=== PATIENT | male | born 1995 | race Caucasian/White ===

== ENCOUNTER 2018-10-07 16:24 | Emergency (ER) | payer OTHER ==
[2018-10-07] MEDS ORDERED: Diphtheria,Pertussis(Acell),Tetanus Vaccine 0.5 ML Syringe IM ONE (16:44)
[2018-10-07] MEDS ORDERED: Bacitracin Oint 1 GM U/D Packet TOP ONE (16:44)
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
--- NOTE | 2018-10-07 17:19 | CR ---
Indication: Trauma and pain Technique: Left shoulder 3 views. Comparison: None Findings: Bones: Alignment is normal. No fractures or bone lesions. Joint spaces: Unremarkable. Soft tissues: Unremarkable. Impression: No sign of acute injury. Dictated by Juan Ruth MD @ Oct 07 2018 5:17PM Signed by Dr. Juan Ruth @ Oct 07 2018 5:18PM
--- NOTE | 2018-10-07 17:20 | CR ---
Indication: Injury and pain. Technique: Right knee 3 views Comparison: None Findings: Bones: Alignment is normal. No fractures or bone lesions. Joint spaces: No joint effusion. Joint spaces are well maintained. No degenerative changes. Soft tissues: Unremarkable. Impression: No sign of acute injury. Dictated by Juan Ruth MD @ Oct 07 2018 5:18PM Signed by Dr. Juan Ruth @ Oct 07 2018 5:19PM
== END 2018-10-07 17:45 | disposition home or self-care (01) ==
LOC: MW.ED 16:24
DX: S80.11XA Contusion of right lower leg, initial encounter (principal); S80.212A Abrasion, left knee, initial encounter; S80.211A Abrasion, right knee, initial encounter; S49.92XA Unspecified injury of left shoulder and upper arm, initial encounter; Z23 Encounter for immunization; V86.56XA Driver of dirt bike or motor/cross bike injured in nontraffic accident, initial encounter
CPT/HCPCS: 73030-26-LT; 73030-LT; 73562-26-RT; 73562-RT; 90471; 90715; 99283; 99283-25

== ENCOUNTER 2019-02-08 19:27 | Emergency (ER) | payer OTHER ==
[2019-02-08] MEDS ORDERED: Ketorolac 60 MG/2 ML SDV IM ONE (19:39)
--- NOTE | 2019-02-08 19:43 | EDM.PDOC ---
ED HPI GENERAL MEDICAL PROBLEM - General Chief Complaint: Back Pain or Injury Stated Complaint: BACK PAIN Time Seen by Provider: 02/08/19 19:28 Source of Information: Reports: Patient History Limitations: Reports: No Limitations - History of Present Illness INITIAL COMMENTS - FREE TEXT/NARRATIVE: HISTORY AND PHYSICAL: History of present illness: Patient is a 23-year-old male presents to the ED today with concern of mid back pain 1 week. Patient states she has had issues with mid back pain off and on over the past 3-4 years. Patient states that a few days ago he went to the chiropractor and had relief of symptoms. Patient states he "didn't take it easy "and continued to work hard which really flared up his back pain. Patient denies any trauma or injury to the back. Patient denies any loss or retention of bowel and bladder function or saddle anesthesia. Patient denies any other symptoms or concerns. Patient denies fever, chills, chest pain, shortness of breath, or cough. Denies headache, neck stiff ness, change in vision, syncope, or near syncope. Denies nausea, vomiting, abdominal pain, diarrhea, constipation, or dysuria. Has not noted any blood in urine or stool. Patient has been eating and drinking appropriately. Review of systems: As per history of present illness and below otherwise all systems reviewed and negative. Past medical history: As per history of present illness and as reviewed below otherwise noncontributory. Surgical history: As per history of present illness and as reviewed below otherwise noncontributory. Social history: See social history for further information Family history: As per history of present illness and as reviewed below otherwise noncontributory. Physical exam: General: Patient is alert, oriented, and in no acute distress. Patient sitting comfortably on exam table. HEENT: Atraumatic, normocephalic, pupils equal and reactive bilaterally, negative for conjunctival pallor or scleral icterus, mucous membranes moist, TMs normal bilaterally, throat clear, neck supple, nontender, trachea midline. No drooling or trismus noted. No meningeal signs. No hot potato voice noted. Lungs: Clear to auscultation, breath sounds equal bilaterally, chest nontender. Heart: S1S2, regular rate and rhythm without overt murmur Abdomen: Soft, nondistended, nontender. Negative for masses or hepatosplenomegaly. Negative for costovertebral tenderness. Pelvis: Stable nontender. Genitourinary: Deferred. Rectal: Deferred. Skin: Intact, warm, dry. No lesions or rashes noted. Extremities: Atraumatic, negative for cords or calf pain. Neurovascular unremarkable. No obvious deformity of the complete spine. No step-offs, crepitus , or point tenderness of spinous process of complete spine. Patient does have mild to moderate pain with palpation of the paraspinous muscles of the thoracic spine but does have full range of motion of the complete spine. SLR intact bilaterally. Patellar reflex intact bilaterally. Heel/Tip toe gait intact. Neuro: Awake, alert, oriented. Cranial nerves II through XII unremarkable. Cerebellum unremarkable. Motor and sensory unremarkable throughout. Exam nonfocal. Notes: Discussed the importance for follow-up with a primary care provider. Voices understanding and is agreeable to plan of care. Denies any further questions or concerns at this time. Diagnostics: UA, thoracic x-ray Therapeutics: Toradol, Norflex Prescription: Diclofenac, Flexeril Impression: Mid back pain Plan: 1. Rest, ice/heat elevate the affected extremity. You can apply ice and/or heat 15 minutes on, 15 minutes off. 2. Tylenol as directed for pain management or discomfort. Take medication as prescribed. 3. Follow up with the primary care provider as discussed. Return to the ED as needed and as discussed. Definitive disposition and diagnosis as appropriate pending reevaluation and review of above. low to mid back and neck Pain Score (Numeric/FACES): 7 - Related Data Allergies Allergy/AdvReac Type Severity Reaction Status Date / Time No Known Allergies Allergy Verified 02/08/19 19:36 Home Meds: Home Meds . [No Known Home Meds] 10/07/18 [History] Past Medical History - Past Health History Medical/Surgical History: Denies Medical/Surgical History Other Musculoskeletal History: threw back out at the age of 20 Social & Family History - Tobacco Use Smoking Status *Q: Current Every Day Smoker Years of Tobacco use: 10 Packs/Tins Daily: 0.5 - Recreational Drug Use Recreational Drug Use: No ED ROS GENERAL - Review of Systems Review Of Systems: ROS reveals no pertinent complaints other than HPI. ED EXAM, GENERAL - Physical Exam Exam: See Below (See dictation) Course - Vital Signs Last Recorded V/S: Last Vital Signs Temp 97.8 F 02/08/19 19:33 Pulse 76 02/08/19 19:33 Resp 18 02/08/19 19:33 BP 123/69 02/08/19 19:33 Pulse Ox 99 02/08/19 19:33 - Orders/Labs/Meds Labs: Laboratory Tests 02/08/19 Range/Units 19:43 Urine Color YELLOW Urine Appearance CLEAR Urine pH 6.0 (5.0-8.0) Ur Specific [place] 1.025 (1.001-1.035) Urine Protein NEGATIVE (NEGATIVE) mg/dL Urine Glucose (UA) NEGATIVE (NEGATIVE) mg/dL Urine Ketones 15 H (NEGATIVE) mg/dL Urine Occult Blood NEGATIVE (NEGATIVE) Urine Nitrite NEGATIVE (NEGATIVE) Urine Bilirubin NEGATIVE (NEGATIVE) Urine Urobilinogen 0.2 (<2.0) EU/dL Ur Leukocyte Esterase NEGATIVE (NEGATIVE) Meds: Medications Discontinued Medications Generic Name Dose Route Start Last Admin Trade Name Freq PRN Reason Stop Dose Admin Ketorolac Tromethamine 60 mg 02/08/19 19:39 02/08/19 19:47 Toradol IM 02/08/19 19:40 Not Given ONETIME ONE Orphenadrine Citrate 60 mg 02/08/19 19:39 02/08/19 19:47 Norflex IM 02/08/19 19:40 60 mg NOW STA Administration Departure - Departure Time of Disposition: 20:34 Disposition: Home, Self-Care 01 Clinical Impression: Mid back pain - Discharge Information Referrals: PCP,None [Primary Care Provider] - Forms: ED Department Discharge Additional Instructions: The following information is given to patients seen in the emergency department who are being discharged to home. This information is to outline your options for follow-up care. We provide all patients seen in our emergency department with a follow-up referral. The need for follow-up, as well as the timing and circumstances, are variable depending upon the specifics of your emergency department visit. If you don't have a primary care physician on staff, we will provide you with a referral. We always advise you to contact your personal physician following an emergency department visit to inform them of the circumstance of the visit and for follow-up with them and/or the need for any referrals to a consulting specialist. The emergency department will also refer you to a specialist when appropriate. This referral assures that you have the opportunity for follow-up care with a specialist. All of these measure are taken in an effort to provide you with optimal care, which includes your follow-up. Under all circumstances we always encourage you to contact your private physician who remains a resource for coordinating your care. When calling for follow-up care, please make the office aware that this follow-up is from your recent emergency room visit. If for any reason you are refused follow-up, please contact the [facility] Emergency Department at and asked to speak to the emergency department charge nurse. [facility] [address] [place] [id number] [facility] [address] [place] [id number] 1. Rest, ice/heat elevate the affected extremity. You can apply ice and/or heat 15 minutes on, 15 minutes off. 2. Tylenol as directed for pain management or discomfort. Take medication as prescribed. 3. Follow up with the primary care provider as discussed. Return to the ED as needed and as discussed.
--- NOTE | 2019-02-08 20:31 | CR ---
INDICATION: mid-back pain after twisting back wrong way 1 wk ago TECHNIQUE: Thoracic spine 3 views. COMPARISON: None. FINDINGS: Bones: Alignment is normal. No fractures or bone lesions. Joint spaces: Disc spaces are normal. Facet joints are normal. Soft tissues: Negative. IMPRESSION: Negative thoracic spine. Dictated by: Juan Hurley MD @ 02/08/2019 20:29:58 (Electronically Signed)
== END 2019-02-08 20:45 | disposition home or self-care (01) ==
LOC: MW.ED 19:27
DX: M54.6 Pain in thoracic spine (principal); F17.210 Nicotine dependence, cigarettes, uncomplicated
CPT/HCPCS: 72072; 81003; 96372; 99283; J2360